=== PATIENT | female | born 1940 | race Caucasian/White ===

== ENCOUNTER → 2016-09-05 | Outpatient (CLI) | payer MEDICARE ==
[2016-09-05 11:28] LABS: RED BLOOD COUNT 4.11 M/UL (4.00-5.10); WHITE BLOOD COUNT 6.5 K/UL (4.5-11.0)
[2016-09-05 11:44] LABS: BUN/CREATININE RATIO 15 (0-10)
== END ==
LOC: MAMO 10:52
PROVIDERS: Legal Medicine
DX: Z12.31 Encounter for screening mammogram for malignant neoplasm of breast (principal); C50.919 Malignant neoplasm of unspecified site of unspecified female breast
CPT/HCPCS: 36415; 80053; 85025; 86300; G0202